=== PATIENT | male | born 1990 | race Caucasian/White ===

== ENCOUNTER 2018-09-04 19:57 | Emergency (ER) | payer OTHER ==
[2018-09-04] MEDS ORDERED: Lidocaine 1% 20 ML MDV INJECT ONE (20:38)
[2018-09-04] MEDS ORDERED: Lidocaine 1% 50 ML MDV INJECT STA (20:51)
[2018-09-04] MEDS: Lidocaine 1% 30 ML SDV ONE ×2 (20:53→20:54)
--- NOTE | 2018-09-05 00:15 | ER ---
REASON FOR EMERGENCY ROOM VISIT: Laceration of left index finger. HISTORY OF PRESENT ILLNESS: This previously healthy 27-year-old man accidentally lacerated his finger on a needle-nose plier while at home just prior to coming to the emergency department. He was brought in by his significant other. He suffered the laceration involving the distal aspect of his left index finger. He states that he bled quite a bit initially, but he managed to stop it with pressure. His last tetanus booster was 7-8 years ago. The pliers was a clean instrument. He did not get his laceration excessively soiled. CURRENT MEDICATIONS: None. ALLERGIES: None. PAST MEDICAL HISTORY: Unremarkable. PHYSICAL EXAMINATION: GENERAL: He is calm, alert, in no acute distress. VITAL SIGNS: He is afebrile. Pulse of 71, blood pressure 128/91, respiratory rate is 20. Examination of his left index finger reveals an 8-10 mm laceration along the distal lateral aspect of his index finger overlying the DIP joint. The laceration runs perfectly parallel to the DIP skin crease itself. It does go through the dermis and the skin is approximated without any debris noted or devitalized tissue. Sensation distal to this is intact and DIP function is normal. FURTHER EMERGENCY ROOM COURSE: The wound was soaked in bactericidal soap and water and then painted with Betadine. Approximately 1.5 mL of 1% xylocaine was infiltrated along the wound edges and after a period had elapsed allowing for adequate local anesthesia, the skin edges were approximated with 2 interrupted #4-0 monofilament nylon sutures. Neosporin ointment was applied over this as well as Tubex gauze. IMPRESSION: Laceration, distal left index finger. INSTRUCTIONS: The patient was instructed to keep the dressing intact for a minimum of 24 hours, after which he can remove it. He was instructed to keep it clean and dry. Return for suture removal in 7-10 days. I described to him symptoms and signs of infection, and should any of these appear, he should be seen again. All questions were answered. SAMMY /[id number]
== END 2018-09-04 21:21 ==
LOC: JD.ED 19:57
DX: S61.211A Laceration without foreign body of left index finger without damage to nail, initial encounter (principal); W26.8XXA Contact with other sharp object(s), not elsewhere classified, initial encounter
CPT/HCPCS: 12001; 99283-25

== ENCOUNTER 2020-12-06 17:58 | Emergency (ER) | payer OTHER ==
--- NOTE | 2020-12-06 18:34 | EDM.PDOC ---
ED HPI GENERAL MEDICAL PROBLEM - General Chief Complaint: Bite:Animal, Insect Stated Complaint: DOG BITE Time Seen by Provider: 12/06/20 18:12 Source of Information: Reports: Patient, RN Notes Reviewed History Limitations: Reports: No Limitations - History of Present Illness INITIAL COMMENTS - FREE TEXT/NARRATIVE: Patient is a 30-year-old male who presents to the ED for the evaluation of his dog bite. 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 The wounds themselves are more puncture wounds, not tear wounds. No active bleeding is apparent at tonight's visit. The patient is concerned for the possibility of the dog's vaccination status as the van owner operator states that the dog last probably had any sort of rabies booster in 2017. Patient also notes that the wound is somewhat painful, but he still able to move around without much difficulty. He denies any fevers or chills, cough or shortness of breath, nausea/vomiting/diarrhea prior to the injury. He has been in contact with the dog's van owner operator, and she does state that the dog is somewhat mean and aggressive, and that they would not mind putting it down. Left Ankle Pain Score (Numeric/FACES): 1 - Related Data Allergies Allergy/AdvReac Type Severity Reaction Status Date / Time Penicillins Allergy Airway Verified 12/06/20 18:26 Tightness Home Meds: Home Meds Doxycycline [Vibramycin] 100 mg PO BID 7 Days #14 tab 12/06/20 [Rx] Past Medical History Respiratory History: Reports: Asthma Social & Family History - Caffeine Use Caffeine Use: Reports: Coffee, Energy Drinks, Soda, Tea ED ROS GENERAL - Review of Systems Review Of Systems: Comprehensive ROS is negative, except as noted in HPI. ED EXAM, ANIMAL BITE - Physical Exam Exam: See Below Exam Limited By: No Limitations General Appearance: Alert, WD/WN, No Apparent Distress Respiratory/Chest: No Respiratory Distress, Lungs Clear, Normal Breath Sounds, N o Accessory Muscle Use, Chest Non-Tender Cardiovascular: Normal Peripheral Pulses, Regular Rate, Rhythm, No Edema Extremities: Normal Inspection, Normal Capillary Refill Neurological: Alert, Oriented, Normal Cognition, No Motor/Sensory Deficits Psychiatric: Normal Affect, Normal Mood Skin Exam: Normal Color, Warm/Dry Course - Vital Signs Last Recorded V/S: Last Vital Signs Temp 97.8 F 12/06/20 18:23 Pulse 78 12/06/20 18:23 Resp 18 12/06/20 18:23 BP 111/95 H 12/06/20 18:23 Pulse Ox 98 12/06/20 18:23 - Orders/Labs/Meds Meds: Medications Discontinued Medications Generic Name Dose Route Start Last Admin Trade Name Michael PRN Reason Stop Dose Admin Diphtheria/Tetanus/Acell Pertussis 0.5 ml 12/06/20 18:38 12/06/20 18:44 Diphtheria,Pertussis(Acell),Tetanus Vaccine 0.5 Ml Syringe IM 12/06/20 18:39 0.5 ml .ONCE ONE Administration - Re-Assessments/Exams Free Text/Narrative Re-Assessment/Exam: 12/06/20 18:33 Patient presents to the ED for the evaluation of his dog bite. Unclear as if the dog is at updated rabies vaccination however it seems like may be it is not quite up-to-date on its boosters. I will let the patient know, that he is up to 14 days to be treated for rabies if it should determine that the dog was positive. Although this sounds fairly unlikely. We will go ahead and have him coordinate with the van owner operator, Multimedia Journalist's department, and veterinary services for management of this case. He should return to healthcare management if he should need any sort of rabies vaccinations. Departure - Departure Time of Disposition: 18:34 Disposition: Home, Self-Care 01 Condition: Good Clinical Impression: Dog bite of extremity - Discharge Information *PRESCRIPTION DRUG MONITORING PROGRAM REVIEWED*: No *COPY OF PRESCRIPTION DRUG MONITORING REPORT IN PATIENT ZEESHAN: No Prescriptions: Doxycycline [Vibramycin] 100 mg PO BID 7 Days #14 tab Instructions: Animal Bite, Adult, [id number] Referrals: PCP,None [Primary Care Provider] - Forms: ED Department Discharge Additional Instructions: You were seen in this ER for your dog bite on your left lower leg. You have been started on an antibiotic, doxycycline for management of this, dosing will be 1 tablet 2 times a day for the next 7 days. This medication was electronically sent to the [place] pharmacy located in the [employer] store. It is quite unclear if the dog that bit you was up-to-date on his vaccinations however you have up to 14 days to determine if the dog is in fact up-to-date. If the van owner operator is willing to put the dog down, she may surrender it to the local cotton chopper's department to have it taken to the vet for testing. Otherwise a dog will need to be quarantined and observed for symptom development. Keep the wound clean and dry with warm soapy water, you may ice the area to provide relief of swelling. You may also use Tylenol or ibuprofen every 6 hours as needed for further pain or discomfort. Please return to the ER at any time if symptoms change or worsen. Sepsis Event Note (ED) - Evaluation Sepsis Screening Result: No Definite Risk - Focused Exam Vital Signs: Vital Signs Temp Pulse Resp BP Pulse Ox 12/06/20 18:23 97.8 F 78 18 111/95 H 98
[2020-12-06] MEDS ORDERED: Diphtheria,Pertussis(Acell),Tetanus Vaccine 0.5 ML Syringe IM ONE (18:38)
== END 2020-12-06 18:58 | disposition home or self-care (01) ==
LOC: JD.ED 17:58
DX: S81.852A Open bite, left lower leg, initial encounter (principal); J45.909 Unspecified asthma, uncomplicated; Z88.0 Allergy status to penicillin; Z23 Encounter for immunization; W54.0XXA Bitten by dog, initial encounter
CPT/HCPCS: 90471; 90715; 99283

== ENCOUNTER 2024-01-17 18:03 | Emergency (ER) | payer OTHER ==
[2024-01-17 19:41] LABS: BASOPHILS ABSOLUTE AUTO 0.1 K/mm3 (0.0-0.2); EOSINOPHILS ABSOLUTE AUTO 0.4 K/mm3 (0.0-0.4); EOSINOPHILS PERCENT AUTO 5.9 % (0.0-6.0); HEMATOCRIT 45.1 % (42.0-52.0); HEMOGLOBIN 15.7 gm/dl (14.0-18.0); IMMATURE GRAN ABSOLUTE AUTO 0.01 K/mm3 (0.00-0.05); IMMATURE GRAN PERCENT AUTO 0.1 % (0.0-0.4); LYMPHOCYTES ABSOLUTE AUTO 2.3 K/mm3 (1.0-4.8); LYMPHOCYTES PERCENT AUTO 32.5 % (24.0-44.0); MEAN CORPUSCULAR HEMOGLOBIN 29.2 pg (28.0-32.0); MEAN CORPUSCULAR HGB CONC 34.8 g/dl (32.0-36.0); MEAN CORPUSCULAR VOLUME 83.8 fl (83.0-99.0); MEAN PLATELET VOLUME 9.6 fl (9.4-12.4); MONOCYTES ABSOLUTE AUTO 0.5 K/mm3 (0.0-0.8); MONOCYTES PERCENT AUTO 6.9 % (0.0-8.0); NEUTROPHILS ABSOLUTE AUTO 3.7 K/mm3 (1.8-7.7); NEUTROPHILS PERCENT AUTO 53.6 % (41.0-71.0); PLATELET COUNT,PLT 211 K/mm3 (150-400); RED BLOOD CELL COUNT 5.38 M/mm3 (4.52-5.90); WHITE BLOOD CELL COUNT,WBC 6.96 K/mm3 (3.9-11.3)
[2024-01-17 19:59] LABS: INR 0.97; PROTHROMBIN TIME 10.4 SECONDS (9.7-12.0)
[2024-01-17 20:00] LABS: PTT,PARTIAL THROMBOPLSTIN TIME 27.3 SECONDS (21.7-31.4)
[2024-01-17 20:02] LABS: A/G RATIO 1.1 (1-2); ANION GAP 9.1 (5-15); BILIRUBIN TOTAL 0.4 mg/dL (0.2-1.0); BUN/CREATININE RATIO 15.5 (14-18); CALCIUM 9.3 mg/dL (8.5-10.1); CREATININE 1.1 mg/dL (0.7-1.3); EST CRCL DRUG DOSING (CG) 106.8 mL/min; POTASSIUM,K 5.1 mEq/L (3.5-5.1); PROTEIN TOTAL,TP 7.6 g/dl (6.4-8.2)
== END 2024-01-17 21:47 | disposition home or self-care (01) ==
LOC: JD.ED 18:03
DX: I87.1 Compression of vein (principal); M79.601 Pain in right arm; Z88.0 Allergy status to penicillin; Z88.1 Allergy status to other antibiotic agents
CPT/HCPCS: 36415; 80053; 85025; 85610; 85730; 93971-26-RT; 93971-RT; 99284